=== PATIENT | female | born 1935 | race Caucasian/White ===

== ENCOUNTER 2023-09-17 16:51 | Inpatient (IN) ==
[2023-09-17] MEDS ORDERED: Acetaminophen IV 1 GM/100ML 1,000 MG/100 ML BAG IV ONE (19:44)
[2023-09-17 20:14] LABS: ABS Eosinophils 0.1 10^3/uL (0.0-0.5); ABS Monocytes 0.7 10^3/uL (0.0-0.9); ABS Neutrophils 4.3 10^3/uL (1.5-7.6); Hematocrit 21.6 % (35-45); Hemoglobin 7.5 g/dL (11.5-14.3); Lymphocyte % 16.4 %; Mean Corpuscular Hemoglobin 31.6 pg (27-33); Mean Corpuscular Hgb Conc 34.4 g/dL (31-36); Mean Corpuscular Volume 91.7 fL (80-97); Mean Platelet Volume 6.4 fL (7.5-11.2); Platelet Count 245 10^3/uL (150-450); Red Blood Count 2.36 10^6/uL (3.63-4.92); Red Cell Distribution Width 17.7 % (12-17); White Blood Count 6.1 10^3/uL (3.8-11.8)
[2023-09-17 20:58] LABS: Ferritin 76.3 ng/mL (11-307)
[2023-09-17 21:14] LABS: Albumin 3.2 g/dL (3.2-5.2); Albumin/Globulin Ratio 0.7 (1-3); Calcium 9.1 mg/dL (8.6-10.3); Creatinine, Serum 0.55 mg/dL (0.51-0.95); Globulin 4.4 g/dL (2-4); Total Bilirubin 0.7 mg/dL (0.2-1.0); Total Protein 7.6 g/dL (6.4-8.9); eGFR CKD-EPI 87.6 (>60)
[2023-09-17 21:56] LABS: Urine Appearance Clear; Urine Bilirubin Negative (Negative); Urine Blood Negative (Negative); Urine Color Yellow; Urine Glucose Negative (Negative); Urine Ketones Negative (Negative); Urine Nitrite Negative (Negative); Urine Protein Negative (Negative); Urine Specific Gravity 1.011 (1.002-1.030); Urine Urobilinogen Positive (Negative)
[2023-09-17] MEDS ORDERED: Morphine 2 MG/ML SYRINGE IV PRN (22:00)
[2023-09-17] MEDS ORDERED: Senna TAB 8.6 mg TAB PO PRN (22:12)
[2023-09-17] MEDS ORDERED: Polyethylene Glycol 3350 17 GM PACKET PO PRN (22:12)
[2023-09-17 23:03] LABS: Osmolality Serum 274 mOsm/kg (275-295)
[2023-09-17] MEDS: Enoxaparin 40 MG/0.4 ML SYR SUBCUT SCH (23:18)
[2023-09-18] MEDS ORDERED: Iron Sucrose 300 MG in NS 0.9% 100 ml BAG 95 ML IVPB SCH (01:00)
[2023-09-18] MEDS: IRON SUCROSE IVPB SCH (01:42)
[2023-09-18] MEDS: NS 0.9% IVPB SCH (01:42)
[2023-09-18] MEDS: Nystatin TOP POWDER 15 GM BTL TOPICAL SCH ×4 (01:44→21:49)
[2023-09-18 02:40] LABS: Urine Osmo 265 mOsm/kg (150-1150)
[2023-09-18 05:54] LABS: ABS Eosinophils 0.1 10^3/uL (0.0-0.5); ABS Lymphocytes 1.3 10^3/uL (1.0-4.8); ABS Monocytes 0.5 10^3/uL (0.0-0.9); ABS Neutrophils 2.3 10^3/uL (1.5-7.6); ABS Nucleated RBC 0.01 10^3/ul; Hematocrit 20.1 % (35-45); Hemoglobin 6.9 g/dL (11.5-14.3); Lymphocyte % 30.9 %; Mean Corpuscular Hemoglobin 31.7 pg (27-33); Mean Corpuscular Hgb Conc 34.4 g/dL (31-36); Mean Corpuscular Volume 92.4 fL (80-97); Mean Platelet Volume 6.4 fL (7.5-11.2); Nucleated Red Blood Cells % 0.2 %/100WBC (0.0-0.8); Platelet Count 206 10^3/uL (150-450); Red Blood Count 2.18 10^6/uL (3.63-4.92); White Blood Count 4.2 10^3/uL (3.8-11.8)
[2023-09-18 06:11] LABS: Albumin 2.9 g/dL (3.2-5.2); Albumin/Globulin Ratio 0.7 (1-3); Calcium 8.7 mg/dL (8.6-10.3); Creatinine, Serum 0.52 mg/dL (0.51-0.95); Potassium 4.1 mmol/L (3.5-5.0); Total Bilirubin 0.6 mg/dL (0.2-1.0); Total Protein 6.9 g/dL (6.4-8.9); eGFR CKD-EPI 88.8 (>60)
[2023-09-18] MEDS: Enoxaparin 40 MG/0.4 ML SYR SUBCUT SCH (21:38)
[2023-09-19] MEDS: IRON SUCROSE IVPB SCH (00:16)
[2023-09-19] MEDS: NS 0.9% IVPB SCH (00:16)
[2023-09-19] MEDS ORDERED: Lactated Ringers 1000 ml BAG 1,000 ML IV ONE (04:12)
[2023-09-19 05:55] LABS: Hematocrit 22.9 % (35-45); Hemoglobin 7.9 g/dL (11.5-14.3); Mean Corpuscular Hemoglobin 31.3 pg (27-33); Mean Corpuscular Hgb Conc 34.5 g/dL (31-36); Mean Corpuscular Volume 90.9 fL (80-97); Mean Platelet Volume 6.5 fL (7.5-11.2); Platelet Count 214 10^3/uL (150-450); Red Blood Count 2.52 10^6/uL (3.63-4.92); Red Cell Distribution Width 17.9 % (12-17); White Blood Count 4.1 10^3/uL (3.8-11.8)
[2023-09-19 07:00] LABS: Calcium 8.8 mg/dL (8.6-10.3); Creatinine, Serum 0.57 mg/dL (0.51-0.95); Potassium 3.9 mmol/L (3.5-5.0); eGFR CKD-EPI 86.8 (>60)
[2023-09-19] MEDS ORDERED: Magnesium Hydroxide LIQ 30 ML UDC PO PRN (07:29)
[2023-09-19] MEDS ORDERED: Potassium Chloride LIQUID 20 MEQ/15 ML LIQUID PO ONE (07:41)
[2023-09-19 08:26] LABS: Magnesium 1.8 mg/dL (1.9-2.7)
[2023-09-19] MEDS: Magnesium Hydroxide LIQ 30 ML UDC PO SCH ×2 (11:31→20:26)
[2023-09-19] MEDS: Polyethylene Glycol 3350 17 GM PACKET PO SCH (11:37)
[2023-09-19] MEDS: Nystatin TOP POWDER 15 GM BTL TOPICAL SCH ×3 (11:42→20:22)
[2023-09-19] MEDS: Enoxaparin 40 MG/0.4 ML SYR SUBCUT SCH (20:21)
[2023-09-19] MEDS: Senna TAB 8.6 mg TAB PO SCH (20:26)
[2023-09-20] MEDS: NS 0.9% IVPB SCH (00:58)
[2023-09-20] MEDS: IRON SUCROSE IVPB SCH (00:58)
[2023-09-20 06:37] LABS: ABS Eosinophils 0.1 10^3/uL (0.0-0.5); ABS Monocytes 0.7 10^3/uL (0.0-0.9); ABS Neutrophils 2.7 10^3/uL (1.5-7.6); ABS Nucleated RBC 0.01 10^3/ul; Eosinophil % 1.7 %; Hematocrit 23.2 % (35-45); Hemoglobin 7.9 g/dL (11.5-14.3); Lymphocyte % 22.4 %; Mean Corpuscular Hemoglobin 31.2 pg (27-33); Mean Corpuscular Volume 91.5 fL (80-97); Mean Platelet Volume 6.4 fL (7.5-11.2); Nucleated Red Blood Cells % 0.2 %/100WBC (0.0-0.8); Platelet Count 211 10^3/uL (150-450); Red Blood Count 2.53 10^6/uL (3.63-4.92); Red Cell Distribution Width 17.8 % (12-17); White Blood Count 4.5 10^3/uL (3.8-11.8)
[2023-09-20 06:41] LABS: Anion Gap 6 mmol/L (2-16); Blood Urea Nitrogen 12 mg/dL (6-24); CO2 Carbon Dioxide 26 mmol/L (22-32); Calcium 8.8 mg/dL (8.6-10.3); Chloride 100 mmol/L (101-111); Creatinine, Serum 0.57 mg/dL (0.51-0.95); Glucose 90 mg/dL (70-100); Magnesium 1.8 mg/dL (1.9-2.7); Sodium 132 mmol/L (135-145); eGFR CKD-EPI 86.8 (>60)
[2023-09-20] MEDS: Magnesium Hydroxide LIQ 30 ML UDC PO SCH ×2 (09:23→20:59)
[2023-09-20] MEDS: Polyethylene Glycol 3350 17 GM PACKET PO SCH (09:23)
[2023-09-20] MEDS: Nystatin TOP POWDER 15 GM BTL TOPICAL SCH ×3 (11:04→21:00)
[2023-09-20] MEDS: Multivitamins/Minerals TAB PO SCH (12:23)
[2023-09-20] MEDS: Enoxaparin 40 MG/0.4 ML SYR SUBCUT SCH (20:52)
[2023-09-20] MEDS: Senna TAB 8.6 mg TAB PO SCH (20:59)
[2023-09-21 05:53] LABS: ABS Eosinophils 0.1 10^3/uL (0.0-0.5); ABS Lymphocytes 1.2 10^3/uL (1.0-4.8); ABS Monocytes 0.7 10^3/uL (0.0-0.9); ABS Neutrophils 2.4 10^3/uL (1.5-7.6); Eosinophil % 1.6 %; Hematocrit 23.3 % (35-45); Lymphocyte % 27.1 %; Mean Corpuscular Hemoglobin 31.5 pg (27-33); Mean Corpuscular Hgb Conc 34.4 g/dL (31-36); Mean Corpuscular Volume 91.7 fL (80-97); Mean Platelet Volume 6.2 fL (7.5-11.2); Platelet Count 214 10^3/uL (150-450); Red Blood Count 2.55 10^6/uL (3.63-4.92); Red Cell Distribution Width 18.1 % (12-17); White Blood Count 4.4 10^3/uL (3.8-11.8)
[2023-09-21 06:58] LABS: Calcium 8.8 mg/dL (8.6-10.3); Creatinine, Serum 0.52 mg/dL (0.51-0.95); Magnesium 1.8 mg/dL (1.9-2.7); Potassium 4.2 mmol/L (3.5-5.0); eGFR CKD-EPI 88.8 (>60)
[2023-09-21] MEDS: Nystatin TOP POWDER 15 GM BTL TOPICAL SCH ×3 (11:05→20:54)
[2023-09-21] MEDS: Multivitamins/Minerals TAB PO SCH (11:05)
[2023-09-21] MEDS: Polyethylene Glycol 3350 17 GM PACKET PO SCH (11:06)
[2023-09-21] MEDS: Magnesium Hydroxide LIQ 30 ML UDC PO SCH ×2 (11:06→20:54)
[2023-09-21] MEDS: Senna TAB 8.6 mg TAB PO SCH (20:54)
[2023-09-21] MEDS: Enoxaparin 40 MG/0.4 ML SYR SUBCUT SCH (20:54)
[2023-09-22 00:07] LABS: Albumin 2.5 g/dL (3.4-4.7); Flag, M-protein Isotype Positive (Negative); Total Protein 6.7 g/dL (6.3 - 7.9)
[2023-09-22 07:02] LABS: Calcium 8.9 mg/dL (8.6-10.3); Creatinine, Serum 0.47 mg/dL (0.51-0.95); Magnesium 1.9 mg/dL (1.9-2.7); Potassium 4.1 mmol/L (3.5-5.0); eGFR CKD-EPI 90.9 (>60)
[2023-09-22] MEDS: Polyethylene Glycol 3350 17 GM PACKET PO SCH (08:17)
[2023-09-22] MEDS: Magnesium Hydroxide LIQ 30 ML UDC PO SCH ×2 (08:17→20:58)
[2023-09-22] MEDS: Nystatin TOP POWDER 15 GM BTL TOPICAL SCH ×3 (08:18→20:58)
[2023-09-22] MEDS: Multivitamins/Minerals TAB PO SCH (08:18)
[2023-09-22 14:13] LABS: Rapid COVID-19 Molecular Undetected (Undetected)
[2023-09-22] MEDS: Enoxaparin 40 MG/0.4 ML SYR SUBCUT SCH (20:57)
[2023-09-22] MEDS: Senna TAB 8.6 mg TAB PO SCH (22:57)
[2023-09-23] MEDS: Multivitamins/Minerals TAB PO SCH (08:27)
[2023-09-23] MEDS: Nystatin TOP POWDER 15 GM BTL TOPICAL SCH (08:32)
[2023-09-23] MEDS: Polyethylene Glycol 3350 17 GM PACKET PO SCH (08:32)
[2023-09-23 09:48] VITALS: BP 124/76
[2023-09-23 11:49] LABS: Kappa Free Light Chain 8.12 mg/dL; Lambda Free Light Chain, S 0.75 mg/dL
== END 2023-09-23 11:30 | DRG 554 ==
LOC: ED 16:51 → EDHOLD 16:51 → SUATTDRO 20:10 → EDHOLD 21:20 → SSU 22:09
PROVIDERS: ADMIT Hospitalist; ATTEND Internal Medicine

== ENCOUNTER 2023-11-22 09:46 | Inpatient (IN) ==
[2023-11-22] MEDS: Enoxaparin 40 MG/0.4 ML SYR SUBCUT SCH (13:33)
[2023-11-22 16:33] LABS: Activated Partial Thrombo Time 45.8 seconds (26.0-38.0); INR 1.05 (0.83-1.13)
[2023-11-22] MEDS: Senna TAB 8.6 mg TAB PO SCH (20:43)
[2023-11-23 05:32] LABS: ABS Eosinophils 0.1 10^3/uL (0.0-0.5); ABS Lymphocytes 1.4 10^3/uL (1.0-4.8); ABS Monocytes 0.6 10^3/uL (0.0-0.9); Eosinophil % 2.5 %; Hemoglobin 8.1 g/dL (11.5-14.3); Lymphocyte % 33.1 %; Mean Corpuscular Hemoglobin 32.2 pg (27-33); Mean Corpuscular Hgb Conc 33.8 g/dL (31-36); Mean Corpuscular Volume 95.3 fL (80-97); Mean Platelet Volume 6.1 fL (7.5-11.2); Nucleated Red Blood Cells % 0.1 %/100WBC (0.0-0.8); Platelet Count 292 10^3/uL (150-450); Red Blood Count 2.52 10^6/uL (3.63-4.92); Red Cell Distribution Width 17.8 % (12-17); White Blood Count 4.1 10^3/uL (3.8-11.8)
[2023-11-23 05:48] LABS: Creatinine, Serum 0.46 mg/dL (0.51-0.95); Magnesium 1.8 mg/dL (1.9-2.7); Potassium 4.2 mmol/L (3.5-5.0); eGFR CKD-EPI 91.4 (>60)
[2023-11-23] MEDS: Polyethylene Glycol 3350 17 GM PACKET PO SCH (09:04)
[2023-11-23] MEDS: Magnesium Sulfate 2 gm BAG 2 GM/50 ML BAG IVPB ONE (10:53)
[2023-11-24] MEDS: Lactated Ringers 1000 ml BAG 1,000 ML IV SCH ×2 (01:15→18:32)
[2023-11-24 06:20] LABS: ABS Eosinophils 0.1 10^3/uL (0.0-0.5); ABS Lymphocytes 1.4 10^3/uL (1.0-4.8); ABS Monocytes 0.7 10^3/uL (0.0-0.9); ABS Neutrophils 2.1 10^3/uL (1.5-7.6); Eosinophil % 3.2 %; Hematocrit 23.5 % (35-45); Lymphocyte % 31.8 %; Mean Corpuscular Hemoglobin 32.5 pg (27-33); Mean Corpuscular Hgb Conc 34.1 g/dL (31-36); Mean Corpuscular Volume 95.1 fL (80-97); Nucleated Red Blood Cells % 0.1 %/100WBC (0.0-0.8); Platelet Count 291 10^3/uL (150-450); Red Blood Count 2.47 10^6/uL (3.63-4.92); Red Cell Distribution Width 17.8 % (12-17); White Blood Count 4.3 10^3/uL (3.8-11.8)
[2023-11-24 06:34] LABS: Activated Partial Thrombo Time 38.9 seconds (26.0-38.0); INR 1.04 (0.83-1.13)
[2023-11-24 06:58] LABS: Creatinine, Serum 0.47 mg/dL (0.51-0.95); Potassium 4.7 mmol/L (3.5-5.0); eGFR CKD-EPI 90.9 (>60)
[2023-11-24 07:19] LABS: Ferritin 165.3 ng/mL (11-307)
[2023-11-24 07:26] LABS: Vitamin D Total 25(OH) 35.6 ng/mL (20-50)
[2023-11-24] MEDS ORDERED: fentaNYL 250 mcg/5 ml 50 MCG/ML 5 ml VIAL (250 MCG) ONE (10:37)
[2023-11-24] MEDS ORDERED: Propofol 10 MG/ML 20 ML BTL ONE (10:37)
[2023-11-24] MEDS ORDERED: Rocuronium 50 mg VIAL 10 mg/ml 5 ml VIAL (50 mg) ONE ×2 (10:40→14:12)
[2023-11-24] MEDS ORDERED: Lidocaine 2% PF 5 ML VIAL ONE (10:44)
[2023-11-24] MEDS ORDERED: Phenylephrine IV 10 MG/ML 1 ml VIAL ONE (10:44)
[2023-11-24] MEDS ORDERED: ceFAZolin 2 GM PREMIX 2 GM/50 ML BAG ONE (12:25)
[2023-11-24] MEDS ORDERED: Tranexamic Acid 1 GM/100ML BAG 2,000 MG/200 ML BAG IV ONE (12:25)
[2023-11-24] MEDS ORDERED: ROPIVACAINE 5 MG/ML 30 ML BTL (0.5%) ONE (12:26)
[2023-11-24] MEDS ORDERED: Dexamethasone IV 4 MG/ML VIAL 1 ml VIAL ONE (14:13)
[2023-11-24] MEDS ORDERED: Ondansetron 4 mg VIAL 2 MG/ML 2 ml VIAL ONE (14:13)
[2023-11-24] MEDS ORDERED: Naloxone 0.4 mg VIAL 0.4 mg/ml 1 ml VIAL IV PRN (14:34)
[2023-11-24] MEDS ORDERED: Magnesium Hydroxide LIQ 30 ML UDC PO PRN (16:03)
[2023-11-24] MEDS ORDERED: Ondansetron ODT 4 mg TAB 4 MG TAB PO PRN (16:03)
[2023-11-24] MEDS ORDERED: Lactulose 30 ml UDC PO PRN (16:03)
[2023-11-24] MEDS ORDERED: fentaNYL 100 mcg/2 ml 50 MCG/ML VIAL ONE (16:12)
[2023-11-24] MEDS: fentaNYL 100 mcg/2 ml 50 MCG/ML VIAL IV PRN (16:28)
[2023-11-24] MEDS ORDERED: HYDROcodone/ACETAMIN 5/325 mg TAB ONE (16:39)
[2023-11-24] MEDS: HYDROcodone/ACETAMIN 5/325 mg TAB PO PRN (16:39)
[2023-11-24 17:38] LABS: Hematocrit 31.8 % (35-45); Hemoglobin 10.7 g/dL (11.5-14.3)
[2023-11-24] MEDS: Enoxaparin 30 MG/0.3 ML SYR SUBCUT SCH (18:39)
[2023-11-24] MEDS: Magnesium Hydroxide LIQ 30 ML UDC PO SCH (21:43)
[2023-11-24] MEDS: ceFAZolin 1 GM ADVAN 1 GM in NS 0.9% 50 ML 50 ML IVPB SCH (22:23)
[2023-11-25 06:44] LABS: Creatinine, Serum 0.9 mg/dL (0.51-0.95); Potassium 5.1 mmol/L (3.5-5.0)
[2023-11-25 06:45] LABS: Calcium 8.8 mg/dL (8.6-10.3); eGFR CKD-EPI 61.1 (>60)
[2023-11-25 19:01] LABS: Hematocrit 23.9 % (35-45); Hemoglobin 8.3 g/dL (11.5-14.3)
[2023-11-26 05:03] LABS: ABS Eosinophils 0.1 10^3/uL (0.0-0.5); ABS Lymphocytes 1.5 10^3/uL (1.0-4.8); ABS Monocytes 0.7 10^3/uL (0.0-0.9); ABS Neutrophils 4.8 10^3/uL (1.5-7.6); ABS Nucleated RBC 0.01 10^3/ul; Hematocrit 24.6 % (35-45); Hemoglobin 8.4 g/dL (11.5-14.3); Mean Corpuscular Volume 94.2 fL (80-97); Mean Platelet Volume 6.3 fL (7.5-11.2); Nucleated Red Blood Cells % 0.1 %/100WBC (0.0-0.8); Platelet Count 220 10^3/uL (150-450); Red Blood Count 2.61 10^6/uL (3.63-4.92); Red Cell Distribution Width 16.3 % (12-17); White Blood Count 7.1 10^3/uL (3.8-11.8)
[2023-11-26 05:21] LABS: Calcium 8.4 mg/dL (8.6-10.3); Creatinine, Serum 0.59 mg/dL (0.51-0.95); Potassium 4.7 mmol/L (3.5-5.0); eGFR CKD-EPI 86.1 (>60)
[2023-11-27 05:52] LABS: Hematocrit 22.9 % (35-45); Hemoglobin 7.8 g/dL (11.5-14.3); Mean Platelet Volume 6.2 fL (7.5-11.2); Platelet Count 215 10^3/uL (150-450)
[2023-11-27] MEDS: Ondansetron 4 mg VIAL 2 MG/ML 2 ml VIAL IV PRN (13:20)
[2023-11-27] MEDS ORDERED: Morphine 2 MG/ML SYRINGE IV PRN (13:31)
[2023-11-27 14:56] VITALS: BP 112/58
[2023-11-27] MEDS: Morphine 2 MG/ML SYRINGE ONE (16:33)
== END 2023-11-27 19:00 | DRG 522 ==
LOC: ED 09:46 → EDHOLD 11:55 → SUATTDRO 11:55 → SSU 19:31
PROVIDERS: ADMIT Internal Medicine; ATTEND Internal Medicine

== ENCOUNTER 2023-11-27 09:20 | Inpatient (IN) ==
[2023-11-27] MEDS ORDERED: Senna TAB 8.6 mg TAB PO PRN (11:37)
[2023-11-27] MEDS ORDERED: Magnesium Hydroxide LIQ 30 ML UDC PO PRN (11:37)
[2023-11-27] MEDS ORDERED: Polyethylene Glycol 3350 17 GM PACKET PO PRN (11:52)
[2023-11-27] MEDS: Senna TAB 8.6 mg TAB PO SCH (21:57)
[2023-11-28 06:43] LABS: ABS Eosinophils 0.1 10^3/uL (0.0-0.5); ABS Lymphocytes 0.8 10^3/uL (1.0-4.8); ABS Monocytes 0.6 10^3/uL (0.0-0.9); ABS Neutrophils 2.9 10^3/uL (1.5-7.6); Eosinophil % 1.5 %; Hematocrit 23.3 % (35-45); Hemoglobin 7.9 g/dL (11.5-14.3); Lymphocyte % 18.4 %; Mean Corpuscular Hemoglobin 32.2 pg (27-33); Mean Corpuscular Hgb Conc 33.7 g/dL (31-36); Mean Corpuscular Volume 95.6 fL (80-97); Mean Platelet Volume 6.2 fL (7.5-11.2); Nucleated Red Blood Cells % 0.1 %/100WBC (0.0-0.8); Platelet Count 231 10^3/uL (150-450); Red Blood Count 2.44 10^6/uL (3.63-4.92); Red Cell Distribution Width 15.9 % (12-17); White Blood Count 4.3 10^3/uL (3.8-11.8)
[2023-11-28 07:16] LABS: Albumin 2.3 g/dL (3.2-5.2); Albumin/Globulin Ratio 0.7 (1-3); Calcium 8.7 mg/dL (8.6-10.3); Creatinine, Serum 0.52 mg/dL (0.51-0.95); Globulin 3.4 g/dL (2-4); Potassium 4.4 mmol/L (3.5-5.0); Total Bilirubin 0.5 mg/dL (0.2-1.0); Total Protein 5.7 g/dL (6.4-8.9); eGFR CKD-EPI 88.8 (>60)
[2023-11-28] MEDS: Multivitamins/Minerals TAB PO SCH (08:39)
[2023-11-28] MEDS: Enoxaparin 30 MG/0.3 ML SYR SUBCUT SCH (11:45)
[2023-12-01 07:11] LABS: ABS Monocytes 0.6 10^3/uL (0.0-0.9); Hematocrit 23.9 % (35-45); Hemoglobin 8.2 g/dL (11.5-14.3); Lymphocyte % 20.7 %; Mean Corpuscular Hemoglobin 32.5 pg (27-33); Mean Corpuscular Hgb Conc 34.1 g/dL (31-36); Mean Corpuscular Volume 95.3 fL (80-97); Mean Platelet Volume 6.2 fL (7.5-11.2); Platelet Count 307 10^3/uL (150-450); Red Blood Count 2.51 10^6/uL (3.63-4.92); Red Cell Distribution Width 16.4 % (12-17); White Blood Count 4.6 10^3/uL (3.8-11.8)
[2023-12-05 06:46] LABS: Hematocrit 22.3 % (35-45); Hemoglobin 7.7 g/dL (11.5-14.3); Mean Corpuscular Hgb Conc 34.6 g/dL (31-36); Mean Corpuscular Volume 95.5 fL (80-97); Platelet Count 341 10^3/uL (150-450); Red Blood Count 2.33 10^6/uL (3.63-4.92); Red Cell Distribution Width 16.2 % (12-17); White Blood Count 4.8 10^3/uL (3.8-11.8)
[2023-12-05 07:10] LABS: ABS Eosinophils 0.1 10^3/uL (0.0-0.5); ABS Lymphocytes 1.2 10^3/uL (1.0-4.8); ABS Monocytes 0.8 10^3/uL (0.0-0.9); ABS Neutrophils 2.7 10^3/uL (1.5-7.6); ABS Nucleated RBC 0.04 10^3/ul; Eosinophil % 1.4 %; Nucleated Red Blood Cells % 0.8 %/100WBC (0.0-0.8)
[2023-12-05 07:17] LABS: Albumin 2.5 g/dL (3.2-5.2); Albumin/Globulin Ratio 0.7 (1-3); Calcium 8.5 mg/dL (8.6-10.3); Creatinine, Serum 0.45 mg/dL (0.51-0.95); Globulin 3.5 g/dL (2-4); Total Bilirubin 0.4 mg/dL (0.2-1.0); eGFR CKD-EPI 91.9 (>60)
[2023-12-07 04:31] VITALS: BP 146/71
== END 2023-12-07 14:15 | disposition home or self-care (01) | DRG 554 ==
LOC: PMRU 19:09
PROVIDERS: ADMIT Physical Medicine & Rehabilitation; ATTEND Physical Medicine & Rehabilitation